=== PATIENT | female | born 1965 | race Caucasian/White ===

== ENCOUNTER 2018-02-24 20:03 | Emergency (ER) | payer OTHER ==
[2018-02-24 20:08] VITALS: BP 136/62; PULSE 73; TEMP 97.7; BMI 39.0
--- NOTE | 2018-02-24 21:43 | PDOC ---
History of Present Illness - General Chief Complaint: Pain, Acute Stated Complaint: FOOT PAIN Time Seen by Provider: 02/24/18 21:36 - History of Present Illness Initial Comments: 02/24/18 21:42 52-year-old female without comorbidities presents for evaluation of 8 rheumatic left leg pain 5 days no other associated symptoms. No chest pain. Past History - Past Medical History Allergies/Adverse Reactions: Allergies Allergy/AdvReac Type Severity Reaction Status Date / Time No Known Allergies Allergy Verified 02/24/18 20:08 Home Medications: Ambulatory Orders NK [No Known Home Medication] 02/24/18 Asthma: Yes COPD: No - Suicide/Smoking/Psychosocial Hx Smoking History: Never smoked Review of Systems - Review of Systems Musculoskeletal: Yes: See HPI *Physical Exam - Vital Signs Last Vital Signs Temp Pulse Resp BP Pulse Ox 97.7 F 73 18 136/62 99 02/24/18 20:04 02/24/18 20:04 02/24/18 20:04 02/24/18 20:04 02/24/18 20:04 - Physical Exam Comments: 02/24/18 21:42 Left leg skin color and temperature are normal range of motion of the hip and knee are full with mild discomfort. The calf is tense and tender thigh is soft and nontender no gross sensorimotor deficits. She's neurovascularly intact. Moderate Sedation - Procedure Monitoring Vital Signs: Procedure Monitoring Vital Signs Temperature 97.7 F 02/24/18 20:04 Pulse Rate 73 02/24/18 20:04 Respiratory Rate 18 02/24/18 20:04 Blood Pressure 136/62 02/24/18 20:04 O2 Sat by Pulse Oximetry (%) 99 02/24/18 20:04 ED Treatment Course - RADIOLOGY Radiology Studies Ordered: Category Date Time Status DUPLEX VASCUL US-1 LEG [US] Stat Ultrasound 02/24/18 21:41 Ordered *DC/Admit/Observation/Transfer Diagnosis at time of Disposition: Strain of calf muscle - Discharge Dispostion Disposition: HOME Condition at time of disposition: Stable Decision to Admit order: No - Referrals Referrals: Camila Josue MD [Primary Care Provider] - Alek Patel MD [Staff Physician] - - Patient Instructions Printed Discharge Instructions: Calf Muscle Strain, DI for Calf Muscle Strain Additional Instructions: Tylenol and Motrin for pain as directed. Return to the emergency room should symptoms worsen or go unresolved and follow-up with orthopedic surgery in 2-3 days for further evaluation and treatment options. Your ultrasound today was negative you did not have a clot neurologic - Post Discharge Activity
== END 2018-02-24 22:20 | disposition home or self-care (01) ==
LOC: JERFT 20:03
DX: S86.112A Strain of other muscle(s) and tendon(s) of posterior muscle group at lower leg level, left leg, initial encounter (principal); X58.XXXA Exposure to other specified factors, initial encounter; Y93.89 Activity, other specified; Y92.038 Other place in apartment as the place of occurrence of the external cause; Y99.8 Other external cause status
CPT/HCPCS: 93971-TC; 99281-25